=== PATIENT | male | born 1990 | race Caucasian/White ===

== ENCOUNTER 2024-02-27 08:32 | Outpatient (CLI) | payer OTHER, SELFPAY | END 2024-02-27 08:33 | disposition home or self-care (01) | LOC: NFLDREF 13:35 | PROVIDERS: PCP Internal Medicine; Referring Provider Internal Medicine; Visit Provider Internal Medicine | DX: K27.9 Peptic ulcer, site unspecified, unspecified as acute or chronic, without hemorrhage or perforation (principal); B96.81 Helicobacter pylori [H. pylori] as the cause of diseases classified elsewhere | CPT/HCPCS: 87338 ==

== ENCOUNTER 2024-03-03 20:21 | Emergency (ER) | payer OTHER, SELFPAY ==
[2024-03-03 20:23] VITALS: BP 152/90; PULSE 72; RESP 16; TEMP 36.2; O2SAT 97; BMI 30.4
--- NOTE | 2024-03-03 21:07 | ED_ITS ---
HPI - Wound/Laceration General Chief Complaint: Laceration/Wound Stated Complaint: L index finger lac Time Seen by Provider: 03/03/24 20:34 History of Present Illness HPI narrative: This 33-year-old male comes in with a laceration to his left index finger. He was using a knife in the kitchen and accidentally cut into his left index finger. He has a 2 cm linear laceration over the dorsal aspect of the distal portion of this finger. His tetanus status is up-to-date. Related Data Previous Rx's ?Medication ?Instructions ?Recorded clarithromycin 500 mg tablet 500 mg PO Q12H #28 tabs 03/03/24 cyclobenzaprine 5 mg tablet 5 mg PO BID PRN muscle spasm #30 03/03/24 tabs metronidazole 500 mg tablet 500 mg PO TID #42 tabs 03/03/24 omeprazole 20 mg capsule,delayed 20 mg PO BID #60 caps 03/03/24 release Allergies Allergy/AdvReac Type Severity Reaction Status Date / Time amoxicillin Allergy Severe Anaphylaxis Verified 03/03/24 13:10 Review of Systems Status of ROS: Reports: 10 or more systems reviewed and unremarkable except as noted in History and below Narrative: Constitutional: No fevers, no weight gain or loss. Eyes: No discharge. No vision changes. HENT: No congestion, no sore throat, no ear pain. Cardiovascular: No chest pain, no palpitations. Respiratory: No shortness of breath, no wheezes, no cough. Gastrointestinal: No abdominal pain, no vomiting, no diarrhea. Genitourinary: No dysuria, no hematuria. Musculoskeletal: Normal range of motion. Skin: No rashes, no pruritis. Neurological: No dizziness, weakness, sensory change, speech change. Endo/Heme/Allergies: No bruising or bleeding. No polydipsia. Pysch: no suicidality, no anxiety, no insomnia. All other systems reviewed and are negative. [facility] Medical History (Updated 03/03/24 @ 21:09 by Leobardo Abreu MD) Back pain ?M54.9 - Dorsalgia, unspecified (ICD-10) H. pylori infection ?A04.8 - Other specified bacterial intestinal infections (ICD-10) Social History Smoking Status: Never smoker How often do you have a drink containing alcohol: never AUDIT-C Alcohol total score: 0 Non-prescribed substance use: denies use Exam Narrative: Exam Narrative: Constitutional: Well-developed, well-nourished, no acute distress. HEENT: Normocephalic, atraumatic. Neck: Normal range of motion. Nontender. Supple. Heart: Regular. No murmurs. Normal rate. Intact distal pulses. Lungs: Clear to auscultation. No chest discomfort. No wheezes, rhonchi, or rales. Abdomen: Normal bowel sounds. Nontender. No rebound tenderness. Genitalia: Deferred. Back: No midline tenderness. Normal range of motion. Extremities: Normal range of motion. 2 cm linear laceration over the dorsal distal aspect of the left index finger. Skin: Intact. No rash. Warm. No erythema or pallor. Neurologic: No altered sensation. No weakness. Alert and oriented. Psychiatric: No suicidality. No anxiety or depression. No insomnia. Nursing notes and vitals signs are reviewed. Const: Vital Signs, click to edit/add: Vital Signs - 24 hr 03/03/24 20:23 Temperature 97.1 F L Pulse Rate [Right Pulse Oximeter] 72 Respiratory Rate 16 Blood Pressure [Ri ght Upper Arm] 152/90 H Pulse Oximetry 97 Oxygen Delivery Me thod Room Air Course Vital Signs Vital signs: Initial Vital Signs Temperature 97.1 F L 03/03/24 20:23 Temperature Source Temporal Artery Scan 03/03/24 20:23 Pulse Rate 72 03/03/24 20:23 Pulse Rhythm Regular 03/03/24 20:23 Respiratory Rate 16 03/03/24 20:23 Blood Pressure 152/90 H 03/03/24 20:23 Blood Pressure Mean 110 H 03/03/24 20:23 Blood Pressure Position Sitting 03/03/24 20:23 Pulse Oximetry 97 03/03/24 20:23 Oxygen Delivery Method Room Air 03/03/24 20:23 Vital Signs Temperature 97.1 F L 03/03/24 20:23 Pulse Rate 72 03/03/24 20:23 Respiratory Rate 16 03/03/24 20:23 Blood Pressure 152/90 H 03/03/24 20:23 Pulse Oximetry 97 03/03/24 20:23 Oxygen Delivery Method Room Air 03/03/24 20:23 Temperature 97.1 F L 03/03/24 20:23 Pulse Rate 72 12/11/24 20:23 Respiratory Rate 16 03/03/24 20:23 Blood Pressure 152/90 H 03/03/24 20:23 Pulse Oximetry 97 03/03/24 20:23 Oxygen Delivery Method Room Air 03/03/24 20:23 MDM - Wound/Laceration MDM Narrative Medical decision making narrative: This patient has a wound that would benefit with some repair. The wound was cleansed and I discussed options for repair with the patient. He elected to have Dermabond applied. This was done with excellent results. A Band-Aid was also applied to the finger. Instructions regarding wound care were given. Discharge Plan Discharge Clinical Impression: Laceration Patient Disposition: Home, Self-Care Condition: Improved Additional Instructions: Keep wound clean and dry. Follow up with MD return if worsening. Prescriptions: No Action clarithromycin 500 mg tablet 500 mg PO Q12H Qty: 28 0RF metronidazole 500 mg tablet 500 mg PO TID Qty: 42 0RF omeprazole 20 mg capsule,delayed release(DR/EC) 20 mg PO BID Qty: 60 0RF cyclobenzaprine 5 mg tablet 5 mg PO BID PRN (Reason: muscle spasm) Qty: 30 0RF Follow Up/Referrals: Mathieu Fortune MD [Primary Care Provider] - Stand Alone Forms: [facility] Info Instructions
== END 2024-03-03 21:24 | disposition home or self-care (01) ==
LOC: ED 21:19
PROVIDERS: Emergency Provider Emergency Medicine Emergency Medical Services; PCP Internal Medicine
DX: S61.211A Laceration without foreign body of left index finger without damage to nail, initial encounter (principal); W26.0XXA Contact with knife, initial encounter
CPT/HCPCS: 12001; 99282; 99284

== ENCOUNTER 2024-04-09 09:00 | Outpatient (CLI) | payer OTHER, SELFPAY | END 2024-04-09 09:01 | disposition home or self-care (01) | LOC: NFLDREF 04-12 02:54 | PROVIDERS: PCP Internal Medicine; Referring Provider Internal Medicine; Visit Provider Internal Medicine | DX: A04.8 Other specified bacterial intestinal infections (principal) | CPT/HCPCS: 87338 ==

== ENCOUNTER 2024-05-18 09:57 | Outpatient (CLI) | payer OTHER, SELFPAY | END 2024-05-18 09:58 | disposition home or self-care (01) | PROVIDERS: PCP Internal Medicine; Visit Provider Internal Medicine | DX: E66.9 Obesity, unspecified (principal) | CPT/HCPCS: 80053; 80061; 84443 ==

== ENCOUNTER 2024-05-26 09:00 | Outpatient (CLI) | payer OTHER, SELFPAY | END 2024-05-26 09:01 | disposition home or self-care (01) | LOC: NFLDREF 13:27 | PROVIDERS: PCP Internal Medicine; Referring Provider Internal Medicine; Visit Provider Internal Medicine | DX: R19.7 Diarrhea, unspecified (principal); A04.8 Other specified bacterial intestinal infections; E66.9 Obesity, unspecified | CPT/HCPCS: 87338; 87425; 87798 ==

== ENCOUNTER 2024-09-10 07:55 | Outpatient (CLI) | payer OTHER, SELFPAY ==
--- OUTSIDE RECORDS SUMMARY | 2024-01-02 04:20 | XMS_ITS ---
Author Organization [facility] Address [address] [address] Care Team Providers Care Side Stapler Name Role Phone Maurilio FARAH, [facility] Primary Care Provider Unavail able Alvin Desouza Unavailable [phone] Shamika Becker Unavailable [phone] Allergies Allergen (clinical drug ingredient) Drug/Non Drug Allergy documented on EMR Reaction Allergy Type Onset Date Status Penicillin G Benzathine & Proc Unknown Drug Allergy Active REASON FOR VISIT 33 y/o M who is present for a 2-week f/up H pylori treatment . Medications Medication SIG (Take, Route, Frequency, Duration) Notes Start Date End Date Status Famotidine 40 MG Tablet 1 tablet Orally Twice a day; Duration: 90 days 12/19/2023 Unknown Pantoprazole Sodium 40 MG Tablet Delayed Release 1 tablet Orally every 12 hours; Duration: 90 days 09/22/2023 Unknown Social History Sex Assigned At : Social History Observation Description Sex Assigned At Male Encounters Encounter Location Date Provider Diagnosis [facility] Office [address] [place] [address] 01/02/2024 Shamika Becker Helicobacter pylori (H. pylori) A04.8 and Heartburn R12 Assessments Encounter Date Diagnosis (ICD Code) Assessment Notes Treatment Notes Treatment Clinical Notes Section Notes 01/02/2024 Helicobacter pylori (H. pylori) (ICD-10 - A04.8) 11/14/2023 On EGD 10/31/23. Long discussion about diagnosis, management, prognosis. Pt with pcn allergy. Recommended to continue on PAntoprazole 40mg bid and will rx metronidazole and clarithromycin. Pt is aware to d/c abx and PPI after 2 week treatment. Discussed need for UBT to confirm eradication. Will f/u in 4 weeks. 12/19/2023 Pt has been off abx and PPI for two weeks and is recommended to proceed with UBT to confirm eradication of HP at this point. f/u in 2 weeks 01/02/2024 Heartburn (ICD-10 - R12) 09/22/2023 Will optimize his PPi to bid Demetrius do EGD to asses for complication of reflux disease like Lees esophagitis 11/14/2023 Discussed recent EGD found with biopsies consistent with h.pylori. Pt continues with heartburn despite PPI bid. Will treat h.pylori and f/u in 4 weeks. Oriented to anti-reflux diet and lifestyle modifications. 12/19/2023 Patient did have significant relief of heartburn during treatment for h.pylori. However he has discontinued abd and PPI and is now having daily bouts of heartburn. He is recommended to start Famotidine 40mg bid after compelting breath test and will f/u in 2 weeks. If UBT is negative and he continues to be symptomatic, may restart PPI or consider Voquezna trial Plan Of Treatment No Information History and Physical Notes * HPI (History of Present Illness) Category Sub-Category Detail Notes Category Not es Today's Visit: Case of a 33 YOM that comes in today for follow-up s/p UBT due to heartburn and odonyphagia. For evaluation he underwent EGD with bx consistent with h.pylori. He was started on PPI bid and did complete 2 week course of clarithromycin/metronidazole. He had significant relief of heartburn during treatment however has been off of PPI for 2 weeks and is now having daily bouts of heartburn. He presents today for follow-up after completing treatment for h.pylori. He is feeling well otherwise and denies nausea/vomiting, dysphagia, odynophagia, abdominal pain, melena, rectal bleeding, diarrhea, constipation, weight loss, fever. Progress Notes * Fredy LANCASTERDOB:1990 (34 yo M)Acc No.[id number]:01/02/2024 Progress Notes Patient: Fredy Stout Provider: OLIVIA Knowles :1990 A ge:33 Y S ex:Male Date:01/02/2024 Address:[facility] [address] [place] Pcp:Trever Thorpe MD Subjective: * Chief Complaints: * [age] y/o M who is present for a 2-week f/up H pylori treatment . * HPI: T olya's Visit:: Case of a 33 YOM that comes in today for follow-up s/p UBT due to heartburn and odonyphagia. For evaluation he underwent EGD with bx consistent with h.pylori. He was started on PPI bid and did complete 2 week course of clarithromycin/metronidazole. He had significant relief of heartburn during treatment however has been off of PPI for 2 weeks and is now having daily bouts of heartburn. He presents today for follow-up after completing treatment for h.pylori. He is feeling well otherwise and denies nausea/vomiting, dysphagia, odynophagia, abdominal pain, melena, rectal bleeding, diarrhea, constipation, weight loss, fever. * Medical History: Vaccine: None / Ningun(a) Medical History Verified * Surgical History: colonoscopy and polypectomy 10/12 EGD: gastritis duodenitis irregular z lie 10/31/2023 Surgical History verified. * Hospitalization/Major Diagno stic Procedure: No Hospitalization Documented. Hospitalization Verified. * Family History: F ather: colon polyp. M other: colon polyp. M aternal Grandfather: Colon cancer. M aternal Grandmother: Colon cancer. F amily History Verified.. FMHX of cfolon cancer. * Medications: U nknownFamotidine 40 MG Tablet 1 tablet Orally Twice a day Pantoprazole Sodium 40 MG Tablet Delayed Release 1 tablet Orally every 12 hours Unknown Famotidine 40 MG Tablet 1 tablet Orally Twice a day Unknown Pantoprazole Sodium 40 MG Tablet Delayed Release 1 tablet Orally every 12 hours * Allergies: P enicillin G Benzathine & Proc: AllergyyesAllergies Verified. Objective: Past Vitals:* 12/19/2023 Ht: 76 in, Wt:245lbs, BMI:29 .82Index Assessment: * Assessment: 1. H elicobacter pylori (H. pylori) - A04.8 (Primary) N otes :11/14/2023 On EGD 10/31/23. Long discussion about diagnosis, management, prognosis. Pt with pcn allergy. Recommended to continue on PAntoprazole 40mg bid and will rx metronidazole and clarithromycin. Pt is aware to d/c abx and PPI after 2 week treatment. Discussed need for UBT to confirm eradication. Will f/u in 4 weeks.12/19/2023 Pt has been off abx and PPI for two weeks and is recommended to proceed with UBT to confirm eradication of HP at this point. f/u in 2 weeks 2 . H eartburn - R12 N otes :09/22/2023Will optimize his PPi to bidWil do EGD to asses for complication of reflux disease like Lees esophagitis11/14/2023 Discussed recent EGD found with biopsies consistent with h.pylori. Pt continues with heartburn despite PPI bid. Will treat h.pylori and f/u in 4 weeks. Oriented to anti-reflux diet and lifestyle modifications.12/19/2023 Patient did have significant relief of heartburn during treatment for h.pylori. However he has discontinued abd and PPI and is now having daily bouts of heartburn. He is recommended to start Famotidine 40mg bid after compelting breath test and will f/u in 2 weeks. If UBT is negative and he continues to be symptomatic, may restart PPI or consider Voquezna trial Billing Information: * Procedure Codes: * Electronic signature of OLIVIA White on 09/11/2024 at 01:15 AM EDT Sign off status: Pending * Provider: OLIVIA Knowles Date: Generated for Rip foote/Jessica/Ciaraitting on: 0 09/11/2024 01:15 AM EDT
--- NOTE | 2024-09-10 08:00 | CRLHL7_ITS ---
For Patients: As a result of the Century Cures Act, medical imaging exams and procedure reports are released immediately into your electronic medical record. You may view this report before your referring provider. If you have questions, please contact your health care provider. Indication: Chronic sinusitis Technique: Performed without IV contrast Comparison: None available Findings: Frontal sinuses: Mild mucosal thickening both frontal sinuses. Ethmoid sinuses: Clear. Maxillary sinuses: Mild mucosal thickening bilaterally with mucous retention cyst on the left which measures 1.1 cm. The maxillary sinus drainage pathways are patent on both sides. Sphenoid sinuses: Clear, including both sphenoethmoidal recesses. Nasal Cavity: Kaylyn bullosa right middle turbinate. Rightward curvature nasal septum. No TMJ abnormalities identified. The visualized portions of the orbits, intracranial contents and upper soft tissue neck are grossly negative. Impression: 1. Mild bilateral frontal and maxillary sinus disease with patency of the sinus drainage pathways. 2. Rightward nasal septal deviation with right middle turbinate kaylyn bullosa. Please note that all CT scans at this facility use dose modulation, iterative reconstruction, and/or weight-based dosing when appropriate to reduce radiation dose to as low as reasonably achievable. Dictated by Eleazar Resendiz MD @ 09/10/2024 11:09:44 AM (Electronically Signed)
--- OUTSIDE RECORDS SUMMARY | 2024-09-11 00:16 | XMS_ITS | Patient Health Record ---
Author Organization [facility] Address [address] [address] Care Team Providers Care Sterile Supply Technician Name Role Phone Maurilio FARAH, [facility] Primary Care Provider Unavail able Alvin Desouza Unavailable [phone] Shamika Becker Unavailable [phone] Allergies Allergen (clinical drug ingredient) Drug/Non Drug Allergy documented on EMR Reaction Allergy Type Onset Date Status Penicillin G Benzathine & Proc Unknown Drug Allergy Active Reason For Referral Reason EGD Diagnosis 1 Odynophagia (R13.10) Referral Organization [facility] Referring Provider First Name Alvin Referring Provider Last Name Deo Referring Provider Speciality Gastroente rology Referred Organization [facility], [facility] Referred Provider [facility] Referred Address [address] [facility] [place] [place], [place],[address], Referred Provider Specialty Single Speci alty Group Procedure 1 Egd biopsy single/mu ltiple (42140) General Notes Per barcenas 10/17/2023 06:33:26 PM >[facility]IS[facility] - [facility] DOS:10/31/2023 Bind Benefits Surest,eff:03/24/2023 ;DED$0- REM$0 ,OOP $4,000 -REM $3,823.31 covered @100 %,COPAY$850 ;OV $ 0 PROC 100 % As per payer chat s/w Christine .; for benefits and ,as per rep No auth is req for cpt code 59779, 01248, 90782, 90388; no referal is req ref;[id number];and collect: Professional charge:$0,facility charge:$850,Anesthesia$0, Total amount :$850.../PB, Laurel Pollard 10/20/2023 10:31:24 AM >lvm for pt with copay/deposit info. instructed pt to call back with any questions & email sent, PollardLaurel 10/20/2023 10:31:43 AM >note correction no email on file, Per barcenas 10/20/2023 09:27:49 PM >Ignore previous notes;, [facility] - [facility] ([facility]) DOS:10/31/2023 Bind Benefits Surest,eff:03/24/2023 ;DED$0- REM$0 ,OOP $4,000 -REM $3,823.31 covered @100 %,COPAY$850 ;OV $ 0 PROC 100 % As per payer chat s/w Christine .; for benefits and ,as per rep No auth is req for cpt code 48211, 52690, 92744, 18755, 93182, 24388; no referal is req ref;[id number];and collect: Professional charge:$0,facility charge:$850,Anesthesia$0, Total amount :$850.../PB Referral Priority Routine Medications Medication SIG (Take, Route, Frequency, Duration) Notes Start Date End Date Status Famotidine 40 MG Tablet 1 tablet Orally Twice a day; Duration: 90 days 12/19/2023 Unknown Pantoprazole Sodium 40 MG Tablet Delayed Release 1 tablet Orally every 12 hours; Duration: 90 days 09/22/2023 Unknown Immunizations Vaccine Route Administration Date Status Comme nts COVID19 Unknown 10/21/2020 Administered ,Immunizatio nName,' : COVID-Pfizer (30 MCG/0.3 ML) (36561) ,Status,' : Complete Immunization Given by from source eCW:: COVID19 Unknown 11/12/2020 Administered ,Immunizatio nName,' : COVID-Pfizer (30 MCG/0.3 ML) (44319) ,Status,' : Complete Immunization Given by from source eCW:: Social History Sex Assigned At : Social History Observation Description Sex Assigned At Male Social History Drugs: Social Info Question Answer Notes Drugs: Current or past use of IV or Recreational Drugs: Never / Nunca Alcohol: Social Info Question Answer Notes Alcohol Current or past use of alcohol: Current (some days) / Algunos figueroa Tobacco Use: Social Info Question Answer Notes Smoker / Non-smoker Current or past use of tobacco: Never / Nunca Additional Details Category Social Info Options Details Vaping Current or past use of vaping: Never / Nunca Problems Problem Type SNOMED Code ICD Code Onset Dates Problem Status W/U Status Risk Notes Problem Heartburn (23389658) Heartburn (R12) Active confirmed 09/22/2023 Will optimize his PPi to bid [...] may restart PPI or consider Voquezna trial Problem Helicobacter pylori (31575707) Helicobacter pylori (H. pylori) (A04.8) Active confirmed 11/14/2023 On EGD 10/31/23. Long discussion about diagnosis, management, prognosis. Pt with pcn allergy. Recommended to continue on PAntoprazole 40mg bid and will rx metronidazole and clarithromycin . Pt is aware to d/c abx and PPI after 2 week treatment. Discussed need for UBT to confirm eradication. Will f/u in 4 weeks. 12/19/2023 Pt has been off abx and PPI for two weeks and is recommended to proceed with UBT to confirm eradication of HP at this point. f/u in 2 weeks Problem History of polyp of colon (situation) (748585082) Personal history of colon polyps (Z86.010) Active confirmed Problem Family history of malignant neoplasm of gastrointestinal tract (917349781) FH: colon cancer (Z80.0) Active confirmed Problem Odynophagia (15598839) Odynophagia (R13.10) Active confirmed 09/22/2023 Differential diagnoses include esophagitis, esophageal stricture, esophageal webs. EOE as well as intraluminal lesions are among the differential diagnosis. Will perform EGD for further evaluation. Will perform biopsies during the EGD to rule out EOE. Could be due to reflux 11/14/2023 EGD findings discussed in detail today. Symptoms of odynophagia have resolved. Vital Signs Heart Rate 70 /min 12/19/2023 Oximetry 97 % 12/19/2023 Blood pressure diastolic 80 mm Hg 11/14/2023 Weight-kg 111.13 kg 12/19/2023 Height 76 in 12/19/2023 Blood pressure systolic 138 mm Hg 11/14/2023 Weight 245 lbs 12/19/2023 BMI 29.82 kg/m2 12/19/2023 Encounters Encounter Location Date Provider Diagnosis [facility] [address] [place] [address] 09/22/2023 Alvin Desouza Odynophagia R13.10 a nd Heartburn R12 [facility] [address] [place] [address] 11/14/2023 Shamika Rodriguezan Odynophagia R13.10 ; Helicobacter pylori (H. pylori) A04.[address] [facility] [address] [place] [address] 12/19/2023 Shamika Becker Helicobacter pylori (H. pylori) A04.8 and Heartburn R12 [facility] [address] [place] [address] 10/31/2023 Alvin Desouza Assessments Encounter Date Diagnosis (ICD Code) Assessment Notes Treatment Notes Treatment Clinical Notes Section Notes 12/19/2023 Heartburn (ICD-10 - R12) 09/22/2023 Will optimize [...] may restart PPI or consider Voquezna trial 12/19/2023 Helicobacter pylori (H. pylori) (ICD-10 - A04.8) [...] at this point. f/u in 2 weeks 09/22/2023 Heartburn (ICD-10 - R12) 09/22/2023 Will optimize his PPi to bid Demetrius do EGD to asses for complication of reflux disease like Lees esophagitis 09/22/2023 Odynophagia (ICD-10 - R13.10) 09/22/2023 Differential diagnoses include esophagitis, esophageal stricture, esophageal webs. EOE as well as intraluminal lesions are among the differential diagnosis. Will perform EGD for further evaluation. Will perform biopsies during the EGD to rule out EOE. Could be due to reflux 11/14/2023 Helicobacter pylori (H. pylori) (ICD-10 - A04.8) 11/14/2023 On EGD 10/31/23. Long discussion about diagnosis, management, prognosis. Pt with pcn allergy. Recommended to continue on PAntoprazole 40mg bid and will rx metronidazole and clarithromycin. Pt is aware to d/c abx and PPI after 2 week treatment. Discussed need for UBT to confirm eradication. Will f/u in 4 weeks. 11/14/2023 Odynophagia (ICD-10 - R13.10) 09/22/2023 Differential diagnoses include esophagitis, esophageal stricture, esophageal webs. EOE as well as intraluminal lesions are among the differential diagnosis. Will perform EGD for further evaluation. Will perform biopsies during the EGD to rule out EOE. Could be due to reflux 11/14/2023 EGD findings discussed in detail today. Symptoms of odynophagia have resolved. 11/14/2023 Heartburn (ICD-10 - R12) 09/22/2023 Will optimize his PPi to bid Demetrius do EGD to asses for complication of reflux disease like Lees esophagitis 11/14/2023 Discussed recent EGD found with biopsies consistent with h.pylori. Pt continues with heartburn despite PPI bid. Will treat h.pylori and f/u in 4 weeks. Oriented to anti-reflux diet and lifestyle modifications. Plan Of Treatment Pending Test Test Name Order Date Helicobacter Pylori Breath Test (H Pylor i) 12/19/2023 Insurance Providers Payer Name Payer Address Payer Phone Subscriber Number Group Number Insured Name Patient Relationship to Insured Coverage Start Date Coverage End Date Bind Benefits [facility] [address] [place] [address] [id number] Fredy Lancaster Self - patient is the insured Medical (General) History Medical History History ICD Code Vaccine: None / Romygun(a) Surgical History Surgery Date(Month/Year) colonoscopy and polypectomy 10/12 EGD: gastritis duodenitis irregular z krishan e 10/31/2023
== END 2024-09-10 07:56 | disposition home or self-care (01) ==
LOC: CT 07:56
PROVIDERS: PCP Internal Medicine; Visit Provider Otolaryngology
DX: J32.9 Chronic sinusitis, unspecified (principal); J32.0 Chronic maxillary sinusitis; J34.2 Deviated nasal septum
CPT/HCPCS: 70486

== ENCOUNTER 2024-09-28 09:06 | Outpatient (CLI) | payer OTHER, SELFPAY ==
--- NOTE | 2024-10-05 11:16 | W.PM.SLEEP ---
Sleep Study Details Details Interpreting Provider: Migel Date of Sleep Study: 09/28/24 Sleep Study Details: STUDY TYPE:? Home unattended ? BMI:? 31.52 ORDERING PROVIDER:? Migel INDICATION:? Concerned about sleep apnea ? SLEEP SUMMARY:? 428 minutes monitored RESPIRATORY SUMMARY:? AHI 9 per rule 1A, 5.2 per CMS guideline Low oxygen 88 1% of study oxygen less than 90% Snoring 96% PERIODIC LIMB MOVEMENTS OF SLEEP:? Not recorded CARDIAC:? Range 48-130, mean 67.7 beats per minute IMPRESSION:? Mild obstructive sleep apnea Tachycardia noted on study RECOMMENDATION: Further cardiac evaluation may be indicated. I will notify his primary physician. For the sleep apnea treatment options would include CPAP dental appliance and/or airway expansion surgery.
== END 2024-09-28 09:07 | disposition home or self-care (01) ==
LOC: SLEEP 09:07
PROVIDERS: PCP Internal Medicine; Visit Provider Otolaryngology
DX: G47.33 Obstructive sleep apnea (adult) (pediatric) (principal); R00.0 Tachycardia, unspecified
CPT/HCPCS: 95806

== ENCOUNTER 2024-10-11 06:31 | Outpatient (CLI) | payer OTHER, SELFPAY ==
--- NOTE | 2024-10-11 08:04 | P.ANES_ITS ---
Anesthesia Charges Start Date/Time Anesthesia Start Date: 10/11/24 Anesthesia Start Time: 07:25 Stop Date/Time Anesthesia Stop Date: 10/11/24 Anesthesia Stop Time: 08:01 Coding CPT Codes CPT Codes: ANES UPR LWR GI NDSC PX - 18542 ([id number]) P2 - PATIENT W/MILD SYST DISEASE, QX - JAVA PROGRAMMING PROFESSOR SVC W/ MD MED DIRECTION, QK - MANAGEMENT INSTRUCTOR 2-4 CNCRNT ANES PROC
--- NOTE | 2024-10-11 08:04 | W.ANESCHARGE ---
Anesthesia Charges Start Date/Time Anesthesia Start Date: 10/11/24 Anesthesia Start Time: 07:25 Stop Date/Time Anesthesia Stop Date: 10/11/24 Anesthesia Stop Time: 08:01 Coding CPT Codes CPT Codes: ANES UPR LWR GI NDSC PX - 04699 ([id number]) P2 - PATIENT W/MILD SYST DISEASE, QX - PRODUCTION SUPV SVC W/ MD MED DIRECTION, QK - SALES DATA ANALYST 2-4 CNCRNT ANES PROC
--- NOTE | 2024-10-11 09:02 | P.ANES_ITS ---
Anesthesia Charges Start Date/Time Anesthesia Start Date: 10/11/24 Anesthesia Start Time: 07:25 Stop Date/Time Anesthesia Stop Date: 10/11/24 Anesthesia Stop Time: 08:01 Coding CPT Codes CPT Codes: ANES UPR LWR GI NDSC PX - 88505 ([id number]) QK - MARKETING INTELLIGENCE ANALYST 2-4 CNCRNT ANES PROC, QX - MARINE SCIENTIST SVC W/ MD MED DIRECTION, P2 - PATIENT W/MILD SYST DISEASE
--- NOTE | 2024-10-11 09:02 | W.ANESCHARGE ---
Anesthesia Charges Start Date/Time Anesthesia Start Date: 10/11/24 Anesthesia Start Time: 07:25 Stop Date/Time Anesthesia Stop Date: 10/11/24 Anesthesia Stop Time: 08:01 Coding CPT Codes CPT Codes: ANES UPR LWR GI NDSC PX - 42870 ([id number]) QK - TELEGRAPH PLANT MAINTAINER 2-4 CNCRNT ANES PROC, QX - DIESEL ENGINE OPERATOR SVC W/ MD MED DIRECTION, P2 - PATIENT W/MILD SYST DISEASE
== END 2024-10-11 06:32 | disposition home or self-care (01) ==
LOC: OP CLINIC 06:32
PROVIDERS: PCP Internal Medicine; Visit Provider Internal Medicine
DX: Z12.11 Encounter for screening for malignant neoplasm of colon (principal); K21.9 Gastro-esophageal reflux disease without esophagitis; Z86.0100 Personal history of colon polyps, unspecified; R13.10 Dysphagia, unspecified
CPT/HCPCS: 00813; 43239; 45378; 88305; J2704; J3010

== ENCOUNTER 2024-11-09 18:38 | Outpatient (CLI) | payer OTHER, SELFPAY | END 2024-11-09 18:39 | disposition home or self-care (01) | LOC: NFLDUCREF 18:40 | PROVIDERS: PCP Internal Medicine; Visit Provider Nurse Practitioner Family | DX: R50.9 Fever, unspecified (principal); R06.02 Shortness of breath | CPT/HCPCS: 85379 ==

== ENCOUNTER 2024-12-10 06:21 | Day surgery (SDC) | payer OTHER, SELFPAY ==
[2024-12-10] VITALS (11 sets, daily range): BP systolic 101–131; BP diastolic 58–92; PULSE 63–82; RESP 12–16; TEMP 36.4–37; O2SAT 95–98; BMI 29.3
[2024-12-10] MEDS: SODIUM CHLORIDE 0.9 % (FLUSH) 10 ML SYRINGE IVF (07:34)
[2024-12-10] MEDS: LACTATED RINGERS 1000 ML 1,000 ML 100 ML IV (07:35)
[2024-12-10] MEDS: MUPIROCIN 1 GM PACKET 1 APPLIC TOPICAL (08:30)
[2024-12-10] MEDS: BUPIVACAINE 0.5%/EPINEPHRINE 0.9 MG (30.9 ML) INJECTION (08:30)
[2024-12-10] MEDS: AYR SALINE NASAL GEL 1 APPLIC NOSTRIL-B (08:33)
--- NOTE | 2024-12-10 08:45 | W.PM.ENTPROC ---
Procedure Note Date of procedure: 12/10/24 Procedure: Preop diagnosis nasal obstruction, nasal headache, right middle turbinate kaylyn bullosa, deviated septum, bilateral inferior turbinate hypertrophy Postoperative diagnosis same Procedure nasal septoplasty, submucous partial resection inferior turbinates bilateral, endoscopic partial resection right middle turbinate kaylyn bullosa Under general endotracheal anesthesia patient was prepped draped usual fashion nose decongested injected. A right hemitransfixion incision was made left anterior and posterior tunnels were created. A vertical incision was made through the cartilage anterior to the bone and a right posterior tunnel created. Posterior deflected portions of septal bone were resected including the left area 4 5 spur. A large piece was trimmed straightened returned to intraseptal space an incision drainage incision made on the right posterior septal mucosa. The hemitransfixion was closed with 2 4-0 chromic sutures A stab incision was made in the anterior of the right inferior turbinate a tunnel created with a Lupe dissector. The kaylyn bone was outfractured a very conservative anterior submucous resection performed. The Coblation was used to cauterize intramurally along the inferior 10%. This was repeated on the left side in identical fashion. Remainder procedure was done with the available assistance of a 0 degree endoscope. The kaylyn bullosa on the right was incised along its inferolateral aspect. A small amount of bone was resected submucosally and then the turbinate crushed with the Carlos Alberto forceps. Silastic stents were secured with 3-0 nylon and Merocel packing placed in the middle meatus on each side. The patient procedure well was taken recovery in satisfactory condition. Blood loss was 15 mL. Surgeon: Nadir Lainez MD
--- NOTE | 2024-12-10 09:02 | P.ANES_ITS ---
Anesthesia Charges Start Date/Time Anesthesia Start Date: 12/10/24 Anesthesia Start Time: 08:11 Stop Date/Time Anesthesia Stop Date: 12/10/24 Anesthesia Stop Time: 09:01 Coding CPT Codes CPT Codes: ANESTH NOSE/SINUS SURGERY - 03515 ([id number]) P2 - PATIENT W/MILD SYST DISEASE, QK - MAINFRAME PROGRAMMER 2-4 CNCRNT ANES PROC
--- NOTE | 2024-12-10 09:02 | W.ANESCHARGE ---
Anesthesia Charges Start Date/Time Anesthesia Start Date: 12/10/24 Anesthesia Start Time: 08:11 Stop Date/Time Anesthesia Stop Date: 12/10/24 Anesthesia Stop Time: 09:01 Coding CPT Codes CPT Codes: ANESTH NOSE/SINUS SURGERY - 72279 ([id number]) P2 - PATIENT W/MILD SYST DISEASE, QK - SUGAR GRINDER 2-4 CNCRNT ANES PROC
[2024-12-10] MEDS: IBUPROFEN 600 MG TABLET PO (10:13)
[2024-12-10] MEDS: ACETAMINOPHEN 500 MG TABLET 1000 MG PO (10:13)
--- NOTE | 2024-12-10 10:17 | P.ANES_ITS ---
Anesthesia Charges Start Date/Time Anesthesia Start Date: 12/10/24 Anesthesia Start Time: 08:11 Stop Date/Time Anesthesia Stop Date: 12/10/24 Anesthesia Stop Time: 09:01 Coding CPT Codes CPT Codes: ANESTH NOSE/SINUS SURGERY - 72694 ([id number]) QK - DEDICATED REGIONAL DRIVER 2-4 CNCRNT ANES PROC, QX - 1ST PRESSMAN ON WEB PRESS SVC W/ MD MED DIRECTION, P2 - PATIENT W/MILD SYST DISEASE
--- NOTE | 2024-12-10 10:17 | W.ANESCHARGE ---
Anesthesia Charges Start Date/Time Anesthesia Start Date: 12/10/24 Anesthesia Start Time: 08:11 Stop Date/Time Anesthesia Stop Date: 12/10/24 Anesthesia Stop Time: 09:01 Coding CPT Codes CPT Codes: ANESTH NOSE/SINUS SURGERY - 20746 ([id number]) QK - GAS METER READER 2-4 CNCRNT ANES PROC, QX - EMBEDDED LINUX DEVELOPER SVC W/ MD MED DIRECTION, P2 - PATIENT W/MILD SYST DISEASE
== END 2024-12-10 10:26 | disposition home or self-care (01) ==
LOC: OR 06:23
PROVIDERS: PCP Internal Medicine; Visit Provider Otolaryngology
PROC: (CPT 31231; principal; 2024-12-10 08:30)
DX: J34.2 Deviated nasal septum (principal); J34.3 Hypertrophy of nasal turbinates; J34.89 Other specified disorders of nose and nasal sinuses; R51.9 Headache, unspecified
CPT/HCPCS: 30520; 30140; 31240; 00160; A9270; J0330; J1100; J2250; J2405; J2704; J3010; J7120